=== PATIENT | male | born 1980 | race Caucasian/White ===

== ENCOUNTER 2022-02-12 14:27 | Emergency (ER) | payer SELFPAY ==
[~2022-02-12] VITALS: Ht 180.3 cm; Wt 86.4 kg
[2022-02-12] MEDS ORDERED: LIDOcaine 1% 30ml preserv. free vial SQ STA (16:16)
[2022-02-12 16:34] LABS: BASOPHILS % (AUTO) 0.5 % (0-1); EOSINOPHILS # (AUTO) 0.3 X10'3 (0-0.9); HEMATOCRIT 39.5 % (42.0-52.0); HEMOGLOBIN 13.4 g/dl (14.0-17.9); LYMPHOCYTES # (AUTO) 2.3 X10'3 (1.1-4.8); LYMPHOCYTES % (AUTO) 25.3 % (21-51); MEAN CORPUSCULAR HEMOGLOBIN 31.3 PG (27.0-31.0); MEAN PLATELET VOLUME 6.7 FL (7.4-10.4); MONOCYTES # (AUTO) 0.8 X10'3 (0-0.9); MONOCYTES % (AUTO) 9.3 % (2-12); NEUTROPHILS # (AUTO) 5.6 X10'3 (1.8-7.7); NEUTROPHILS % (AUTO) 61.9 % (42-75); PLATELET COUNT 298 X10'3 (140-440); RED BLOOD COUNT 4.29 X10'6 (4.70-6.10); RED CELL DISTRIBUTION WIDTH 12.7 % (11.5-14.5); WHITE BLOOD COUNT 9.1 X10'3 (4.5-11.0)
[2022-02-12 16:48] LABS: ALANINE AMINOTRANSFERASE 24 U/L (12-78); ALBUMIN 3.6 G/DL (3.4-5.0); ALBUMIN/GLOBULIN RATIO 1.1 (1.1-1.5); ALKALINE PHOSPHATASE 88 IU/L (46-116); ANION GAP 7 (8-16); ASPARTATE AMINO TRANSFERASE 13 U/L (10-37); BILIRUBIN,TOTAL 0.1 MG/DL (0.1-1.0); BLOOD UREA NITROGEN 9 MG/DL (7-18); BUN/CREATININE RATIO 11.7 (5.4-32.0); C-REACTIVE PROTEIN 1.06 MG/DL (0.0-0.5); CALCIUM 8.6 MG/DL (8.5-10.1); CHLORIDE 103 MMOL/L (99-107); CREATININE 0.77 MG/DL (0.60-1.10); GLUCOSE 108 MG/DL (70-104); POTASSIUM 3.6 MMOL/L (3.5-5.1); SODIUM 141 MMOL/L (135-145); TOTAL CARBON DIOXIDE 30.7 MMOL/L (24-32); eGFR > 90 ML/MIN
[2022-02-12] MEDS ORDERED: bacitracin 15gm ointment TP ONE (16:50)
[2022-02-12] MEDS ORDERED: CLIN150C2 PO (17:04)
[2022-02-12] MEDS ORDERED: clindamycin 150mg capsule PO ONE (17:05)
[2022-02-12 17:32] VITALS: BP 129/77
== END 2022-02-12 17:33 | disposition home or self-care (01) ==
LOC: ER 14:27
DX: L03.011 Cellulitis of right finger (principal); Z79.2 Long term (current) use of antibiotics
CPT/HCPCS: 10060; 36415; 73140; 80053; 85025; 85651; 86140; 99284; A6449

== ENCOUNTER 2023-07-15 20:52 | Emergency (ER) | payer SELFPAY ==
[~2023-07-15] VITALS: Ht 177.8 cm; Wt 81.2 kg
[2023-07-15] MEDS ORDERED: TETanus/Pertussis (Acell)/Diphther VAC/PF (Tdap-Adult) 0.5ml syringe IMVAC ONE (21:25)
[2023-07-15] MEDS ORDERED: amox tr/potassium clavulanate 875/125mg TAB PO ONE (21:25)
[2023-07-15 21:47] VITALS: BP 115/81; PULSE 88; RESP 17; TEMP 97.8; O2SAT 100
[2023-07-15] MEDS ORDERED: bacitracin 15gm ointment TP ONE (21:50)
== END 2023-07-15 22:56 ==
LOC: ER 20:52
DX: S81.831A Puncture wound without foreign body, right lower leg, initial encounter (principal); Z23 Encounter for immunization; W54.0XXA Bitten by dog, initial encounter; Y93.89 Activity, other specified; Y92.89 Other specified places as the place of occurrence of the external cause; Y99.8 Other external cause status
CPT/HCPCS: 73590; 90471; 90715; 99283; J7030; A6258; A6446; A6449

== ENCOUNTER 2024-07-22 18:20 | Emergency (ER) | payer SELFPAY ==
[~2024-07-22] VITALS: Ht 177.8 cm; Wt 85.6 kg
[2024-07-22 18:24] VITALS: PULSE 106; RESP 14; TEMP 98.2; O2SAT 100
== END 2024-07-22 20:20 | disposition left against medical advice (07) ==
LOC: ER 18:20
DX: S61.412A Laceration without foreign body of left hand, initial encounter (principal); W26.8XXA Contact with other sharp object(s), not elsewhere classified, initial encounter; Y93.89 Activity, other specified; Y92.89 Other specified places as the place of occurrence of the external cause; Y99.8 Other external cause status
CPT/HCPCS: 99281